=== PATIENT | female | born 1965 | race Caucasian/White ===

== ENCOUNTER 2018-10-18 08:04 | Day surgery (SDC) | payer OTHER ==
--- NOTE | 2018-10-05 10:19 | HP ---
Admitting History and Physical - Primary Care Physician PCP: Nic Foster - Admission Chief Complaint: Right breast cancer History of Present Illness: 52 year old perimenapausal female with H/O of DVT 2007 and IVC 2005 blood clot on coumadin /eliquis. Screening mammogram showed 07/2018 density towards upper ouetre aspect right breast 11:00 8 cm FN measuring 8mm and 6mm which are 1.5 cm apart. US guided core bx 08/2018 invasive ductal carcinoma ER+/AL+ HER2-. .Breast MRI 09/2018 showed localized right breast cancer left breast benign findings. History Source: Patient Limitations to Obtaining History: No Limitations - Past Medical History RADIO PRESENTER: Yes: Migraine Cardiovascular: Yes: Deep Vein Thrombosis, Other (IVC clot) - Past Surgical History Past Surgical History: Yes: (x2) Additional Past Surgical History: [place] 2004 hospitalized left breast wide excision 2004 phylloides left breast bx 2012 - Smoking History Smoking history: Former smoker Have you smoked in the past 12 months: No - Alcohol/Substance Use Hx Alcohol Use: Yes (2 to 4 drinks) Home Medications - Allergies Allergies/Adverse Reactions: Allergies Allergy/AdvReac Type Severity Reaction Status Date / Time codeine Allergy Verified 10/05/18 10:21 - Home Medications Home Medications (free text): warfarin/ to be changed to eliquis ,maxalt botox migraines,zofran migraines Family Disease History - Family Disease History Family Disease History: CA: Grandparent (mat GF lung ca 45 ) Physical Examination Constitutional: Yes: No Distress Breast(s): Yes: Other (moderately ptotic cups with left slightly smaller than right from prior wide excision Phyllodes tumor. no palpable densities or adenopathy , right core bx changes) Problem List - Problems (1) Breast cancer, right breast Code(s): C50.911 - MALIGNANT NEOPLASM OF UNSP SITE OF RIGHT FEMALE BREAST Qualifiers: Breast location: upper outer quadrant of breast Estrogen receptor status: positive Patient sex: female Qualified Code(s): C50.411 - Malignant neoplasm of upper-outer quadrant of right female breast; Z17.0 - Estrogen receptor positive status [ER+] Assessment/Plan Right breast wide excision , mammogram needle localization , lymphoscintogram, sentenel node biopsy possible axillary dissection, possible intraop radiation
[2018-10-10 18:56] VITALS: BMI 31.9
--- NOTE | 2018-10-12 15:01 | PATH ---
Surgical Pathology Report Patient Name: AMADOR ELIZALDE [facility]. Rec. #: [id number] /Age/Gender: 1965 (Age: 52) / F Account: [id number] Location: [facility] Taken: 10/07/2018 Received: 10/07/2018 Reported: 10/10/2018 Physicians: Nic Foster M.D. Specimen(s) Received SLIDE REVIEW Clinical History Right breast biopsy Final Diagnosis A. BREAST, RIGHT, 11:00, 8 CM FROM NIPPLE, SITE A, CORE BIOPSY(6 H&E SLIDES, 5 IMMUNOSTAINS: NOLASCO [id number]; 08/29/18): INVASIVE DUCTAL CARCINOMA, MODERATELY DIFFERENTIATED, MEASURING 8 MM IN GREATEST DIMENSION IN THIS MATERIAL. (SEE NOTE) Note: Outside E-Cadherin immunostain demonstrates positivity in the tumor cells, supporting ductal phenotype. OUTSIDE ER, NH, HER2 AND Ki67 IMMUNOSTAINS SHOW THE FOLLOWING RESULTS: ER: > 90% NUCLEAR STAINING WITH STRONG INTENSITY (POSITIVE). NH: > 90% NUCLEAR STAINING WITH MODERATE TO STRONG INTENSITY (POSITIVE). HER2: 0 (NEGATIVE). KI67: ~20% (INTERMEDIATE PROLIFERATIVE INDEX). B. BREAST, RIGHT, 11:00, 8 CM FROM NIPPLE, SITE B, CORE BIOPSY (6 H&E SLIDES: NOLASCO [id number] B; 08/29/18): INVASIVE DUCTAL CARCINOMA, MODERATELY DIFFERENTIATED, MEASURING 4 MM IN GREATEST DIMENSION IN THIS MATERIAL. Electronically Signed Diandra Cooper M.D. Gross Description B. Received from [place], [place] are twelve H&E slides, labeled with the patient's name and accession number [id number] A1x3, A2x3, B1x3, B2x3 along with ER, NH, Her2, Ki67 and E-Cadherin immunostains. Also received is a corresponding pathology report.
[2018-10-18 10:20] LABS: INR 1.15 (0.82-1.09); PROTHROMBIN TIME (PATIENT) 12.6 SEC (10.2-13.0)
[2018-10-18] MEDS ORDERED: MIDAZOLAM HCL 2 MG/2 ML SINGLE DOSE VIAL ONE (14:16)
[2018-10-18] MEDS ORDERED: PROPOFOL 20 ML ONE ×2 (14:27)
[2018-10-18] MEDS ORDERED: LIDOCAINE HCL/PF 2% SDV 5ML VIAL ONE (14:27)
[2018-10-18] MEDS ORDERED: ISOSULFAN BLUE 10 MG/ML VIAL SQ ONE (14:32)
[2018-10-18] MEDS ORDERED: ONDANSETRON 4 MG/2 ML VIAL IVPUSH PRN (16:20)
[2018-10-18] MEDS ORDERED: KETOROLAC TROMETHAMINE 30 MG/1 ML VIAL IVPUSH PRN (16:20)
[2018-10-18] MEDS ORDERED: DEXTROSE 5%-0.45% SALINE 1,000 ML IV SCH (16:30)
[2018-10-18] MEDS ORDERED: oxyCODONE HCL 5 MG TABLET PO PRN ×2 (17:04)
[2018-10-18] MEDS ORDERED: BUPIVACAINE HCL/PF 2.5 MG/ML - 30 ML VIAL IJ ONE (17:09)
[2018-10-18] MEDS ORDERED: LACTATED RINGERS SOLUTION 1,000 ML IV SCH (17:15)
[2018-10-18 19:03] VITALS: PULSE 67
[2018-10-18 20:18] VITALS: BP 132/72; TEMP 99
--- NOTE | 2018-10-18 21:41 | OP ---
DATE OF OPERATION: 10/18/2018 PREOPERATIVE DIAGNOSIS: Right breast cancer. POSTOPERATIVE DIAGNOSIS: Right breast cancer. PROCEDURE: Post-lumpectomy intraoperative radiation therapy for right breast cancer. ATTENDING SURGEON: Nic Foster MD COMPOUND MIXER/RADIATION ONCOLOGIST: Mega Kasper MD ANESTHESIA: General. COMPLICATIONS: None. INDICATIONS: The patient is a 53-year-old woman with a clinically stage I moderately differentiated invasive ductal carcinoma of the right breast, ER/ME positive, HER-2 negative, with multifocal disease, who is a candidate and has agreed to breast conservation therapy. She has elected to proceed with intraoperative radiation therapy following lumpectomy and sentinel and sentinel lymph node biopsy. Discussed with Dr. Foster. PROCEDURE: Dr. Foster performed right lumpectomy and sentinel lymph node biopsy, which he has dictated. After excision of additional margins, the lumpectomy cavity was prepared by suturing the breast tissue to close the cavity, which was then sized with a 4.5-cm diameter spherical applicator. The applicator was placed into the 10 o'clock aspect of the right breast, and the surrounding breast tissues were cinched around the applicator with a Vicryl pursestring suture. I performed a clinical and ultrasound simulation to ensure that the applicator was located within the operative bed with close apposition of the surrounding breast tissue to the surface of the applicator. Saline-soaked Ray-Christy gauze was placed between the skin and breast tissue and our measurements confirmed that there was at least 1.5 cm separation between the skin and applicator surface at the 9 o'clock aspect of the applicator. Shielding material was placed over the breast to reduce scatter radiation. The patient received a total dose of 20 Gy prescribed to 0 mm from the applicator surface with 50 kV x-rays using the Intrabeam system. Prior to the treatment, the system was double checked, with appropriate physics air quality chemist measures. The total time required for the treatment was 37 minutes 16 seconds at a dose rate of 0.534 Gy per minute. When the treatment was completed, survey of the patient and the room confirmed that the Intrabeam source was off. There were no complications or unexpected interruptions. Dr. Foster removed the radiation applicator from the patient and completed the surgery. The patient will be discharged to the recovery room following surgery. MEGA KASPER M.D. [id number] cc: Nic Foster MD
--- NOTE | 2018-10-19 07:20 | OP ---
DATE OF OPERATION: 10/18/2018 PREOPERATIVE DIAGNOSIS: Right upper outer quadrant breast cancer. POSTOPERATIVE DIAGNOSIS: Right upper outer quadrant breast cancer. PROCEDURE: Right breast partial mastectomy with mammographic needle localization of right axillary sentinel lymph node biopsy with intraoperative radiation using the 4.5 cm Intrabeam device. and 5 x 4 cm tissue transfer closure. ANESTHESIA: General laryngeal mask airway anesthesia. PRIMARY SURGEON: Alyce Foster MD AMALGAMATOR: DELMI Mota COMPLICATIONS: There were no complications. INDICATIONS: Briefly, the patient is a 53-year-old perimenopausal white female of [place]/Azeri/Aly[place]/Hebrew descent with no family history of breast or ovarian cancer, but her maternal grandfather had lung cancer at 45. The patient does have a history of DVT and is on chronic Coumadin. She was found to have a right breast cancer in the upper outer quadrant on screening mammography and ultrasound in July of 2018 and underwent genetic testing, which was negative. She underwent an MRI, found the cancer to be localized. She was advised undergoing a partial mastectomy and was given the option of intraoperative radiation as part of the TARGIT-US trial, was seen by radiation oncology preoperatively, and was enrolled into the TARGIT-US trial, and she decided to go forward with intraoperative radiation. DESCRIPTION OF PROCEDURE: The patient was scheduled and brought in for the procedure on October 18, 2018. She underwent a lymphoscintigraphy and needle localization at [facility] and was brought to the [place] holding area. In the holding area, site verification was made and informed consent was obtained. She was brought into the operating room, laid on the OR table in the supine position, and Venodynes were placed on the lower extremities prior to induction. She received 1 g of Ancef prior to incision. She underwent general laryngeal mask airway anesthesia. Then, 3 mL of lymphazurin blue were injected intradermally and peritumorally around the needle localization site. The right breast was then sterilely prepped and draped in the usual fashion with the wire prepped in the field. Time-out was performed. At this point, decision was made to perform the wide excision sentinel lymph node biopsy through the same incision. The navigator probe was used to direct the dissection, and a hot node was found around the level 1 region of the right axilla, which was also slightly blue with blue lymphatics coursing through it. It had a 10-second gamma count of 1230. No other blue or hot nodes were found, and background count after removal of this node was about 132, but there was a lot of background shine-through, but no specifically hot area. Hemostasis was achieved. At this point, the wide excision was undertaken around the needle localization site through the same incision. Tissue was taken equally around all sides of the needle localization wire, and the breast tissue was completely removed all the way down to the pectoralis major muscle. The specimen was oriented with the long-lateral short-superior suture, and specimen radiograph showed removal both clips in question. Hemostasis was achieved. The specimen was sent to Pathology in formalin. Separate margins were then taken on the superior, inferior, medial, lateral, deep, and anterior margins with suture marking the biopsy cavity sides, and each margin was sent separately to Pathology as appropriately labeled margins. Again, hemostasis was achieved. The axillary wound was then closed off using 2-0 plain suture, and then, 2-0 pursestring was placed around the wide excision cavity, and a 4.5 cm Intrabeam device was placed sterilely into the cavity. Ultrasound was used to confirm the device 1 cm from the skin in all 4 quadrants. At this point, intraoperative radiation was accomplished after about 37 minutes. After intraoperative radiation, the Intrabeam device was removed, and the wound was copiously irrigated, and hemostasis again achieved. A 5 x 4 cm tissue transfer was then accomplished to close the defect in the upper outer aspect of the right breast. The breast tissue was reapproximated using 2-0 plain suture. The skin was closed using interrupted 3-0 deep dermal Vicryl suture and a running 4-0 subcuticular Biosyn suture. Mastisol and Steri-Strips were applied over the wound, and she was placed in a compressive surgical bra postoperatively. The patient will have the laryngeal mask airway tube removed and will recover in the post-anesthesia care unit. She will be discharged home the same day once discharge criteria are met. All sponge and needle counts were correct at the end of the case, and estimated blood loss was about 20 mL. She was hemodynamically stable throughout. ALYCE FOSTER M.D. [id number]
--- NOTE | 2018-10-21 16:58 | PATH ---
Surgical Pathology Report Patient Name: AMADOR ELIZALDE [facility]. Rec. #: [id number] /Age/Gender: 1965 (Age: 53) / F Account: [id number] Location: [facility] AMBULATORY Taken: 10/18/2018 Received: 10/18/2018 Reported: 10/21/2018 Physicians: Nic Foster M.D. Specimen(s) Received A: RIGHT BREAST WIDE EXCISION B: RIGHT BREAST SENTINEL NODE # [id number] C: RIGHT BREAST SUPERIOR MARGIN D: RIGHT BREAST INFERIOR MARGIN E: RIGHT BREAST ANTERIOR MARGIN F: RIGHT BREAST POSTERIOR MARGIN G: RIGHT BREAST MEDIAL MARGIN H: RIGHT BREAST LATERAL MARGIN Clinical History Prior core IDC Final Diagnosis A. RIGHT BREAST WIDE EXCISION: INVASIVE DUCTAL CARCINOMA, TWO FOCI, MODERATELY DIFFERENTIATED (TUBULE SCORE 3/3, NUCLEAR GRADE: 2/3, MITOTIC SCORE: 1/3, TOTAL SCORE 6/9, DARCY GRADE 2), MEASURING 1.0 CM AND 0.6CM IN GREATEST MICROSCOPIC DIMENSION, RESPECTIVELY. DUCTAL CARCINOMA IN SITU (DCIS) PRESENT, INTERMEDIATE NUCLEAR GRADE, CRIBRIFORM PATTERN. SURGICAL MARGINS ARE UNINVOLVED BY CARCINOMA. INVASIVE CARCINOMA IS AT LESS THAN 1 MM FROM THE CLOSEST (ANTERIOR) MARGIN. DCIS IS AT 7 MM FROM THE CLOSEST (ANTERIOR) MARGIN. ALSO SEE SPECIMENS C TO H FOR FINAL MARGINS. LYMPHOVASCULAR INVASION IDENTIFIED. PRIOR BIOPSY SITE WITH REACTIVE CHANGES. PATHOLOGIC STAGE (pTNM): pT(m)1b, pN1mi SEE ALSO INVASIVE CARCINOMA CASE SUMMARY BELOW. Comment: Immunohistochemical stain E-Cadherin performed and interpreted at [facility] shows membranous immunoreactivity in the tumor cells, supporting a ductal phenotype. B. RIGHT BREAST SENTINEL LYMPH NODE #[id number],[id number], EXCISION: ONE LYMPH NODE, POSITIVE FOR MICROMETASTASES (TUMOR CLUSTERS >0.2 MM TO 2 MM AND/OR >200 CELLS) (0/1). IMMUNOHISTOCHEMICAL STAIN AE1/3 PERFORMED AND INTERPRETED AT [facility]HL[facility] THE TUMOR CLUSTERS. C. RIGHT BREAST SUPERIOR MARGIN, EXCISION: BENIGN FIBROADIPOSE TISSUE. D. RIGHT BREAST INFERIOR MARGIN, EXCISION: BENIGN BREAST TISSUE. E. RIGHT BREAST ANTERIOR MARGIN, EXCISION: BENIGN FIBROADIPOSE TISSUE. F. RIGHT BREAST POSTERIOR MARGIN, EXCISION: BENIGN FIBROADIPOSE TISSUE. G. RIGHT BREAST MEDIAL MARGIN, EXCISION: BENIGN BREAST TISSUE. H. RIGHT BREAST LATERAL MARGIN, EXCISION: BENIGN FIBROADIPOSE TISSUE. Comments Breast Invasive Carcinoma: Surgical Pathology Case Summary (Based on AJCC TNM 8 th edition) Procedure _x_ Excision (less than total mastectomy) Specimen Laterality _x_ Right Tumor Size Greatest dimension of largest invasive focus >1 mm (millimeters): 10 mm Histologic Type _x_ Invasive carcinoma of no special type (ductal, not otherwise specified) Histologic Grade (Darcy Histologic Score) Glandular (Acinar)/Tubular Differentiation _x_ Score 3 (<10% of tumor area forming glandular/tubular structures) Nuclear Pleomorphism _x_ Score 2 Mitotic Rate _x_ Score 1 Overall Grade _x_ Grade 2 (scores of 6 or 7) Tumor Focality _x_ Multiple foci of invasive carcinoma Number of foci: 2 Sizes of individual foci: 10mm and 6mm Ductal Carcinoma In Situ (DCIS) _x_ DCIS is present in specimen _x_ Negative for extensive intraductal component (EIC) Size (extent) of DCIS: Estimated size (extent) of DCIS is at least (millimeters): 4 mm Number of blocks with DCIS: 1 Number of blocks examined: 26 Margins Invasive Carcinoma Margins _x_ Uninvolved by invasive carcinoma Distance from closest margin (millimeters): The carcinoma is at less than 1 mm from anterior margin in the wide excision (specimen A). Additional anterior margin (specimen E) is negative for carcinoma. DCIS Margins _x_ Uninvolved by DCIS Distance from closest margin (millimeters): 7mm Closest margin: Anterior margin Regional Lymph Nodes _x_ Involved by tumor cells Number of Lymph Nodes with Macrometastases (>2 mm): 0 Number of Lymph Nodes with Micrometastases (>0.2 mm to 2 mm and/or >200 cells): 1 Number of Lymph Nodes with Isolated Tumor Cells (=0.2 mm and =200 cells): 0 Size of Largest Metastatic Deposit (millimeters): <1 mm Extranodal Extension: _x_ Not identified Treatment Effect _x No known presurgical therapy Lymphovascular Invasion _x_ Present Pathologic Stage Classification (pTNM, AJCC 8th Edition) Primary Tumor (Invasive Carcinoma) (pT) pT1b: Tumor >5 mm but =10 mm in greatest dimension Category (pN) pN1mi: Micrometastases (approximately 200 cells, larger than 0.2 mm, but none larger than 2.0mm) Biomarker Studies Results of ER and MA studies performed on this specimen (block#A1) at [facility] are as follows: ER (clone [id number] mouse monoclonal antibody by [employer]): >90% nuclear staining with strong intensity (positive). MA (clone16 mouse monoclonal antibody by [employer]): >90% nuclear staining with strong intensity (positive). Results of Her2 (IHC) & Ki-67 studies performed on this specimen (block#A1) at [place], [place] ([id number]) are as follows: Her2 IHC (EP3 from [employer], formerly known as [id number], using Welsh Polymer Refine detection kit): 0 (negative) Ki67: <5% (low proliferative index) Positive and negative controls (internal if applicable) show appropriate results. Formalin fixation and cold ischemic times are within current ASCO/CAP recommendations for ER, MA and Her2 testing. Electronically Signed Anahi Christianson M.D. Gross Description A. Received in formalin, labeled "right breast wide excision," is a 5.8 x 4.3 x 3.3 cm. vivas-yellow, irregular, portion of fibroadipose tissue with a needle localization wire present. There is a short suture marking the superior aspect and a long suture marking the lateral aspect, per the surgeon. There is no skin or nipple present. The specimen is inked as follows: superior and lateral blue; inferior green; medial yellow; anterior red; deep black. The specimen is serially sectioned from superior to inferior. Sectioning reveals a 1.5 x 0.8 x 0.7 cm ill-defined mass at 0.6 cm from the anterior margin and 0.7 cm from the deep margin. The remaining margins appear clear of the mass. Tourist Cabin Keeper sections are submitted in 7 cassettes as follows: 1-full face section of mass with anterior and deep margins; 2-additional consecutive full face section of mass with anterior margin; 3-additional deep margin; 4-lateral margin; 5-medial margin; 6-inferior margin; 7-superior margin. Time to formalin fixation: 15 minutes Total formalin fixation time: Approximately 26 hours. B. Received in formalin labeled "right breast sentinel node #1," is a 2.5 x 1.4 x 0.5 cm vivas-yellow portion of adipose tissue, possibly containing a lymph node. The specimen is bisected and entirely submitted in one cassette. C. Received in formalin labeled "right breast superior margin," is a 2.2 x 1.8 x 1.0 cm portion of fibroadipose tissue with a suture marking the biopsy cavity side, per surgeon. The new margin is inked blue and the specimen is serially sectioned. The specimen is entirely submitted in 3 cassettes. D. Received in formalin labeled "right breast inferior margin," is a 2.7 x 2.0 x 0.8 cm portion of fibroadipose tissue with a suture marking the biopsy cavity side, per the surgeon. The new margin is inked blue and the specimen is serially sectioned. The specimen is entirely submitted in 3 cassettes. E. Received in formalin labeled "right breast anterior margin," is a 2.2 x 2.0 x 0.7 cm portion of fibroadipose tissue with a suture marking the biopsy cavity side, per the surgeon. The new margin is inked blue and the specimen is serially sectioned. The specimen is entirely submitted in 3 cassettes. F. Received in formalin labeled "right breast posterior margin," is a 2.6 x 1.7 x 0.6 cm portion of fibroadipose tissue with a suture marking the biopsy cavity side, per the surgeon. The new margin is inked blue and the specimen is serially sectioned. The specimen is entirely submitted in 3 cassettes. G. Received in formalin labeled "right breast medial margin," is a 2.6 x 1.8 x 0.7 cm portion of fibroadipose tissue with a suture marking biopsy cavity side, per the surgeon. The new margin is inked blue and the specimen is serially sectioned. The specimen is entirely submitted in 3 cassettes. H. Received in formalin labeled "right breast lateral margin," is a 2.7 x 1.8 x 0.7 cm portion of fibroadipose tissue with a suture marking the biopsy cavity side, per the surgeon. The new margin is inked blue and the specimen is serially sectioned. The specimen is entirely submitted in 3 cassettes. 10/19/2018 [facility]10/19/2018
== END 2018-10-18 20:17 | disposition home or self-care (01) ==
LOC: FASU 08:04
PROVIDERS: ATTEND Surgery Surgical Oncology
PROC: 0HBT0ZZ Excision of Right Breast, Open Approach (ICD-10-PCS; principal; 2018-10-18 14:55)
PROC: DMY17ZZ Contact Radiation of Right Breast (ICD-10-PCS; 2018-10-18 14:55)
PROC: 0JX60ZC Transfer Chest Subcutaneous Tissue and Fascia with Skin, Subcutaneous Tissue and Fascia, Open Approach (ICD-10-PCS; 2018-10-18 14:55)
DX: C50.411 Malignant neoplasm of upper-outer quadrant of right female breast (principal); Z17.0 Estrogen receptor positive status [ER+]; Z86.718 Personal history of other venous thrombosis and embolism
CPT/HCPCS: 19281; 36415; 76641-TC-50; 77290; 77300; 77316; 77332; 77424; 78195-TC; 84703; 85610; 88307-TC; 88342-TC; 94760; A9541; C9726